=== PATIENT | male | born 2000 | race Asian ===

== ENCOUNTER 2022-02-05 09:08 | Emergency (ER) | payer OTHER ==
[~2022-02-05] VITALS: Ht 170.2 cm; Wt 59.5 kg
[2022-02-05 11:44] VITALS: BP 144/86
== END 2022-02-05 11:46 | disposition home or self-care (01) ==
LOC: EDBD 09:08 → M ED 09:08
DX: S93.431A Sprain of tibiofibular ligament of right ankle, initial encounter (principal); W22.8XXA Striking against or struck by other objects, initial encounter; Y92.89 Other specified places as the place of occurrence of the external cause; Y99.0 Civilian activity done for income or pay